=== PATIENT | female | born 1985 | race Caucasian/White ===

== ENCOUNTER 2025-08-29 16:05 | Emergency (ER) | payer MEDICARE, SELFPAY ==
[2025-08-29 16:06] VITALS: BMI 19.2
[2025-08-29 16:07] VITALS: BP 117/78
[2025-08-29 16:16] VITALS: BP 117/78
[2025-08-29 16:54] LABS: Hematocrit 36.7 % (37.0-47.0); Hemoglobin 12.1 g/dL (12.0-16.0); Mean Corp Hgb Conc. 33.0 g/dL (33.0-37.0); Mean Corpuscular Volume 86.4 fL (81.0-99.0); Nucleated Red Blood Cells % 0 %; Platelet Count 335 10^3/uL (130-400); Red Cell Dist. Width 13.1 % (11.5-14.5)
[2025-08-29 17:00] VITALS: BP 117/85
[2025-08-29] MEDS: DUONEB 3 ML INH (17:00)
[2025-08-29 17:07] LABS: ALT (SGPT) 25 U/L (0-35); AST (SGOT) 26 U/L (14-36); Albumin 4.8 g/dl (3.5-5.0); Alkaline Phosphatase 84 U/L (38-126); Blood Urea Nitrogen 7 mg/dl (7-17); Calcium 9.7 mg/dl (8.4-10.2); Carbon Dioxide 25 mmol/L (22-30); Chloride 108 mmol/L (98-107); Estimated Creatinine Clearance 84 ml/min; Glucose 107 mg/dl (70-99); Potassium 4.1 mmol/L (3.5-5.1); Sodium 142 mmol/L (135-145); Total Protein 7.7 g/dl (6.3-8.2); eGFR > 60.00
[2025-08-29 17:43] LABS: COVID-19 Antigen Negative (Negative)
[2025-08-29 19:00] VITALS: BP 135/28
[2025-08-29 19:05] LABS: D-Dimer 0.61 ug/mlFEU (0.00-0.50)
[2025-08-29 19:13] LABS: Troponin I 0.019 ng/ml
--- NOTE | 2025-08-29 19:13 | ED.GENMED ---
History of Present Illness
General
Chief Complaint: Breathing Problem
Time Seen by Provider: 08/29/25 16:17
History of Present Illness
History of Present Illness:
see MDM
Phy Exam
Physical Exam
Physical Exam:
see MDM
Course
Orders/Labs/Results
Orders:
Orders
08/29/25 16:37
CBC/With Diff [Complete Blood Count/With Diff] Urgent
Comprehensive Metabolic Panel Urgent
HCG, Serum Qualitative Screen Urgent
Comment: ADD ON
08/29/25 16:55
Ipratropium/Albuterol Sulfate [Duoneb] 3 ml INH R NOW STA
CR Chest - 2 Views Urgent
Comment:
Reason For Exam: cough, wheezing
08/29/25 17:03
COVID-19 Antigen Urgent
Source: Nasal Swab
08/29/25 18:11
Electrocardiogram (*1) Urgent
Reason for Study: Shortness of Breath
EKG- Treatment ONCE
08/29/25 18:42
D-Dimer Urgent
Troponin I Urgent
08/29/25 19:14
Add On- LAB Urgent
Tests Added?: hcg serum qual
CT Chest PE Study Urgent
Comment:
Reason For Exam: elev d dimer, sob
08/29/25 21:00
Albuterol Nebs [Ventolin Nebules] 2.5 mg INH R NOW STA
Doxycycline [Vibramycin] 100 mg PO NOW STA
08/29/25 21:25
Albuterol [ProAIR HFA INHALER] 2 puff INH R NOW STA
Abnormal Lab Results
08/29/25 08/29/25
16:37 18:42
Hct 36.7 L %
(37.0-47.0)
Absolute Neuts (auto) 7.3 H 10^3/uL
(1.4-6.5)
Absolute Lymphs (auto) 1.1 L 10^3/uL
(1.2-3.4)
Neutrophils % 80.0 H %
(42.2-75.2)
Lymphocytes % 11.5 L %
(20.5-51.1)
D-Dimer 0.61 H ug/mlFEU
(0.00-0.50)
Chloride 108 H mmol/L
(98-107)
Glucose 107 H mg/dl
(70-99)
08/29/25 16:37
08/29/25 16:37
Vital Signs
Initial and Last Documented VS:
Initial Vital Signs
Temp Pulse Resp BP Pulse Ox
37.2 C 96 16 117/78 96
08/29/25 16:07 08/29/25 16:07 08/29/25 16:07 08/29/25 16:07 08/29/25 16:07
Last Documented Vital Signs
Temp Pulse Resp BP Pulse Ox
37.2 C 96 16 135/28 94
08/29/25 16:07 08/29/25 16:07 08/29/25 16:07 08/29/25 19:00 08/29/25 19:46
MDM/Problems Addressed
Differential Diagnosis Includes:
see MDM
MDM/Problems Addressed:
Note:
CHIEF COMPLAINT(S)
Sinus infection with subsequent severe coughing and shortness of breath.
HISTORY OF PRESENT ILLNESS
The patient is a 40-year-old female smoker,, here for URI sxs x 3 days, coming in for SOB.
says she started with sinus pressure, congstion 3 days ago. on 08/27 she visited urgent care, where she was prescribed amoxicillin-clavulanate and underwent testing for influenza which was neg.
pt says she took 2 doses that day, 2 doses yesterday but by 3 am this morning was having SOB, wheezing and a cough. she fel ther heart racing slightly. she also was coughing a bit. went back to where she had CXR and was told maybe she was
having reaction to augmentin so she was switched to amoxicillin 875. pt was wheezing and her pulse ox 94%
she was given neb and now feels much much better.. she has never had asthma or wheezing from smoking. she doesn't tolerate steroids
RSV was neg at today.
low grade temp
no recent travel
no DVT/PE
no OCPs
ADDITIONAL HISTORY OBTAINED FROM SOURCES OTHER THAN THE PATIENT
Per family member�s reminder, the patient returned to urgent care on Wednesday and underwent additional testing, including a chest X-ray.
SOCIAL HISTORY
The patient smokes cigarettes, approximately one pack every three days. There is a family history of asthma in her household.
REVIEW OF SYSTEMS
- Respiratory: Severe coughing, shortness of breath, wheezing.
- Ears, Nose, and Throat: Sinus pressure, history of ear itching.
PHYSICAL EXAM
GENERAL: Alert , in no apparent distress
EYE: pupils equal and reactive
NECK: Supple
ENT: b/l TM s clear, + nasal congestion pharynx erythematous but no tonsillar hypertrophy or exudates
CARDIAC: Regular rate and rhythm, no edema
LUNGS: faint end exp wheezing throughout, occ cough, no resp distress, moving good air
ABDOMEN: Soft, without focal tenderness, no r/g, no cvat, normal bowel sounds
NEUROLOGICAL: Alert and oriented, no focal neuro deficits
SKIN: Warm and dry, skin intact.
MUSCULOSKELETAL: No edema, well perfused.
PSYCH: Normal and appropriate interaction.
Nursing notes reviewed and vital signs reviewed.
PROBLEM LIST
Acute:
- Acute sinusitis
- Respiratory distress with wheezing
PLAN
1. Repeat nebulizer treatment due to current minimal wheezing and patient request, as it previously provided improvement.
2. Prescribe bronchodilator with a spacer for home use, including instructions on pulverizing and inhalation techniques.
3. Prescribe a course of steroids as an adjunct therapy for respiratory symptoms.
4. Perform COVID-19 testing to definitively exclude it given the symptom overlap and current epidemiological considerations.
5. Patient education on using medication at home and reducing smoking.
DIFFERENTIAL DIAGNOSIS
The Differential Diagnosis includes, in no particular order and is not limited to:
1. Viral upper respiratory tract infection
2. Bacterial sinusitis
3. Asthma exacerbation
4. COVID-19 infection
5. Influenza
6. Bacterial pneumonia
7. Chronic obstructive pulmonary disease exacerbation
8. Allergic rhinitis
9. Bronchitis
10. Respiratory syncytial virus (RSV) infection
CARE-UPDATE
08/29/25 - 18:40
The patient was found to have clear lung choudhary on examination with no signs of pneumonia and a negative COVID test. An EKG showed subtle abnormalities, specifically non-specific T-wave changes, which may be normal for the patient but were
investigated due to symptoms of shortness of breath, cough, and wheezing. Viral bronchitis is suspected based on clinical presentation, but blood clots were considered as a rule-out. Blood tests, including troponin and D-Dimer, are being drawn to
exclude myocardial infarction and blood clots, respectively. Symptoms began last night and were most pronounced between 1-3 a.m., with gradual improvement. The patient reports some improvement post-nebulizer treatment.08/29/25 - 21:06
The patient does not have a blood clot but presents with early signs of pneumonia and fluid in the lungs.
PT IS CONCNERNED ABOUT STAYNIG ON AUGMENTIN OR AMOX
BECAUSE OF HER WHEEZING/SOB THAT DEVELOPED
SHE WOULD LIKE TO SWITCH TO doxycycline due to concerns of potential wheezing linked to Augmentin, though this is believed to be from reactive airway disease from the pneumonia rather than an allergic reaction. A spacer-enhanced inhaler will be
provided to ensure effective delivery of medication. A nebulizer machine will also be provided for at-home treatments. The suggestion of a Z-Rip was declined due to the patients sensitivity to it.
PULSE OX STABLE
rather than neb machine, she will be sent with inhaler and spaer, no machines available
*Pulse Oximetry
SaO2: 95
Oxygen Mode of Delivery: Room air
Patient hypoxic: no (94)
*Critical Care Note
Total Time (30-74mins, 75-104mins- exclusive of procedures): Not Applicable
ED Attending Note
-
Portions of this chart may have been created with voice recognition software.� Occasional wrong word or��sound alike� substitutions may have occurred due to the inherent limitations of voice recognition software.
Discharge Plan
Departure
Patient Disposition: Home (Routine Discharge)
Date of Disposition: 08/29/25
Time of Disposition: 21:08
Patient with high blood pressure during this ER visit?: No
Discharge Problem:
Pneumonia, Reactive airway disease
Instructions: Pneumonia
Prescriptions:
New
doxycycline hyclate 100 mg capsule
100 mg PO BID Qty: 20 0RF
albuterol sulfate [Ventolin HFA] 90 mcg/actuation HFA aerosol inhaler
2 puff inhalation QID PRN (Reason: shortness of breath or wheezing) Qty: 6.7 0RF
No Action
Multivitamin Tablet
1 tab DAILY
ibuprofen 200 MG/10 ML suspension
600 mg PO Q4HPRN PRN (Reason: cramping pain) 0RF
Referrals:
NONE,* [Family Provider, Internal Medicine]
Activity Restrictions/Additional Instructions:
YOU HAVE developing pneumonia but no blood clot. You were wheezing. Use the inhaler 2 puffs in the chamber every 4-6 hours, you can do 1 puff and take a deep breath and hold it for 10 seconds and the second puff take a deep breath and hold it for
10 seconds. Do this every 4-6 hours.
You can use Mucinex for your cough. Take doxycycline twice a day, your first dose was tonight. You can moss picker your prescription tomorrow.
Follow-up with your family doctor. You may want to consider steroids if you are getting worse even though they cause some side effects because of the wheezing. Return for any concern
Interventions
Interventions:
*Risk Screen - Suicide Last Done: 08/29/25 16:27
*General Assessment Last Done: 08/29/25 16:19
*Neglect/Abuse Screening Last Done: 08/29/25 16:19
*ED- Fall Risk Assessment Last Done: 08/29/25 16:19
*ED COVID-19 Vaccine History Last Done: 08/29/25 16:19
*ED Influenza Vaccine History Last Done: 08/29/25 16:19
*Nursing Disposition Last Done: 08/29/25 21:44
ED- Cardiac Assessment Last Done: 08/29/25 16:19
ED- Pulmonary Assessment Last Done: 08/29/25 16:19
Discharge Date and Time
Discharge Date/Time: 08/29/25 21:53
Print Language: OCCITAN
[2025-08-29 19:23] LABS: HCG, Serum Qualitative Screen Negative
[2025-08-29] MEDS: VIBRAMYCIN 100 MG PO (21:22)
== END 2025-08-29 21:53 | disposition home or self-care (01) ==
LOC: EMR 16:05
PROVIDERS: Physician Assistant; EMERGENCY PHYSICIAN Student in an Organized Health Care Education/Training Program
DX: J18.9 Pneumonia, unspecified organism (principal); J45.909 Unspecified asthma, uncomplicated; F17.210 Nicotine dependence, cigarettes, uncomplicated; Z82.5 Family history of asthma and other chronic lower respiratory diseases
CPT/HCPCS: 99284; 94640; 71046; 71275; 80053; 84484; 84703; 85025; 85379; 87811; 93005; 94667; Q9967